=== PATIENT | male | born 1980 | race Hispanic/Latino ===

== ENCOUNTER 2017-12-24 17:53 | Emergency (ER) | payer MEDICAID, OTHER ==
[2017-12-24 18:23] VITALS: BP 131/76
== END 2017-12-24 22:45 | disposition left against medical advice (07) ==
LOC: ED 17:53
DX: K08.89 Other specified disorders of teeth and supporting structures (principal); Z53.21 Procedure and treatment not carried out due to patient leaving prior to being seen by health care provider